=== PATIENT | male | born 1990 | race Caucasian/White ===

== ENCOUNTER 2019-11-06 00:51 | Emergency (ER) | payer OTHER ==
[~2019-11-06] VITALS: Ht 180.3 cm; Wt 65.7 kg
[2019-11-06] MEDS ORDERED: MORPHINE 2 MG/ML 1ML VIAL (J2270) IV PRN (01:30)
[2019-11-06] MEDS ORDERED: PANTOPRAZOLE 40MG VIAL (C9113 PER 1) IV ONE (01:30)
[2019-11-06] MEDS ORDERED: GI COCKTAIL 50ML BTL(HYOSCYAMINE/MAALOX/LIDOCAINE VISCOUS)(1:3:1) PO ONE (01:30)
[2019-11-06] MEDS ORDERED: ISOVUE-370 76% 100ML VIAL As Ordered ONE (01:46)
[2019-11-06 01:48] LABS: HEMATOCRIT 36.4 % (42.0-52.0); HEMOGLOBIN 12.1 g/dl (13.5-17.5); MEAN CORPUSCULAR HEMOGLOBIN 27.8 pg (27.0-33.0); MEAN CORPUSCULAR HGB CONC 33.2 g/dl (32.0-36.5); MEAN CORPUSCULAR VOLUME 83.7 fl (80.0-96.0); PLATELET COUNT, AUTOMATED 246 10^3/uL (150-450); RED BLOOD COUNT 4.35 10^6/uL (4.30-6.10)
[2019-11-06 01:55] VITALS: BP 130/74
[2019-11-06 02:13] LABS: ALBUMIN 3.7 GM/DL (3.2-5.2); ALT/SGPT 16 U/L (12-78); BILIRUBIN,DIRECT < 0.1 MG/DL (0.0-0.2); BILIRUBIN,TOTAL 0.4 MG/DL (0.2-1.0); LIPASE 186 U/L (73-393); TOTAL PROTEIN 6.9 GM/DL (6.4-8.2)
--- NOTE | 2019-11-06 02:14 | REPVR ---
PROCEDURE INFORMATION: Exam: CT Abdomen And Pelvis With Contrast Exam date and time: 11/06/2019 1:24 AM Age: 29 years old Clinical indication: Abdominal pain; Epigastric; Additional info: Epigastric pain TECHNIQUE: Imaging protocol: Computed tomography of the abdomen and pelvis with intravenous contrast. Radiation optimization: All CT scans at this facility use at least one of these dose optimization techniques: automated exposure control; mA and/or kV adjustment per patient size (includes targeted exams where dose is matched to clinical indication); or iterative reconstruction. Contrast material: ISO; Contrast volume: 100 ml; Contrast route: INTRAVENOUS (IV); COMPARISON: No relevant prior studies available. FINDINGS: Liver: Normal. No mass. Gallbladder and bile ducts: There are several gallstones in the gallbladder. Trace pericholecystic fluid or wall edema along the liver interface. Pancreas: Normal. No ductal dilation. Spleen: Normal. No splenomegaly. Adrenals: Normal. No mass. Kidneys and ureters: Normal. No hydronephrosis. Stomach and bowel: Borderline distention of the stomach with food material, fluid and gas. Mild stool throughout much of the colon. Appendix: A normal appendix is seen. Intraperitoneal space: Unremarkable. No free air. No significant fluid collection. Vasculature: Unremarkable. No abdominal aortic aneurysm. Lymph nodes: Unremarkable. No enlarged lymph nodes. Bladder: Unremarkable as visualized. Reproductive: Unremarkable as visualized. Bones/joints: Unremarkable. No acute fracture. IMPRESSION: 1. Cholelithiasis with slight pericholecystic fluid or wall edema along the liver interface. 2. There is borderline gastric distention with fluid, food and gas which may reflect recent ingestion. Gastric atony or relative outlet obstruction are not excluded. Electronically signed by: Randolph Disla On 11/06/2019 02:13:43 AM
[2019-11-06] MEDS ORDERED: SUCR1SS PO (03:58)
[2019-11-06] MEDS ORDERED: OMEP40CA97 PO (03:58)
--- NOTE | 2019-11-06 06:32 | ED PDOC ---
Post-Departure Follow-Up ft vy rosado faxed formal report of ct abd/p for fu Janet Simmons MD Nov 06, 2019 06:32
== END 2019-11-06 04:12 | disposition home or self-care (01) ==
LOC: M ED 00:51
DX: K80.20 Calculus of gallbladder without cholecystitis without obstruction (principal); K29.70 Gastritis, unspecified, without bleeding; K21.9 Gastro-esophageal reflux disease without esophagitis; F17.200 Nicotine dependence, unspecified, uncomplicated
CPT/HCPCS: 74177; 80047; 80076; 83605; 83690; 85027; 96374; 99284; C9113; Q9967

== ENCOUNTER → 2020-09-16 | Outpatient (CLI) | payer OTHER ==
[~2020-09-16] MED LIST: OMEP40CA97 PO; SUCR1SS PO
--- NOTE | 2020-09-16 09:54 | REP ---
INDICATION: DYSPNEA, UNSPECIFIED COMPARISON: 09/10/2019 TECHNIQUE: PA and lateral. FINDINGS: The mediastinum and cardiac silhouette are normal. The lung huang are clear and without acute consolidation, effusion, or pneumothorax. The skeletal structures are intact and normal. IMPRESSION: No acute cardiopulmonary process. <Electronically signed by Tuan North > 09/16/20 [id number]
== END ==
LOC: M RAD 09:25
PROVIDERS: ATTEND Physician Assistant
DX: R06.00 Dyspnea, unspecified (principal)

== ENCOUNTER → 2020-09-29 | Outpatient (CLI) | payer OTHER ==
[~2020-09-29] MED LIST changes: +METHACHOLINE KIT (J7674) INH ONE
--- NOTE | 2020-09-29 08:38 | PFTRPT ---
Height: 70.00 Inches Weight: 150.00 Lbs BSA: 1.85 Diagnosis: R06.00 DATE: 09/29/2020 ORDERED BY: Tuan Santoyo Study of excellent technical quality. Under protocol, methacholine was administered. Even after a maximum dose of 25 mg or 188.875 CDUs, no provocation dose ever achieved. IMPRESSION: Negative methacholine challenge study. MTDD
== END ==
LOC: M CARPUL 07:39
PROVIDERS: ATTEND Physician Assistant
DX: R06.00 Dyspnea, unspecified (principal)
CPT/HCPCS: 94070; J7674